=== PATIENT | female | born 1945 | race Caucasian/White ===

== ENCOUNTER 2024-12-11 08:04 | Emergency (ER) | payer MEDICARE, MEDICAID ==
[~2024-12-11] VITALS: Ht 170.2 cm; Wt 60.0 kg
[~2024-12-11 08:04] MED LIST: IBUP-2030 MT; LEVO100T9 MT
[2024-12-11 08:10] VITALS: O2SAT 97
[2024-12-11 09:33] LABS: BASOPHILS % 0.6 % (0.0-2.0); EOSINOPHILS % 4.2 % (0.0-5.0); HEMATOCRIT. 34.2 % (36.0-48.0); LYMPHOCYTES % 14.1 % (20.0-50.0); MEAN CORPUSCULAR HEMOGLOBIN 30.2 pg (28.0-32.0); MEAN CORPUSCULAR HGB CONC 32.1 g/dL (31.0-37.0); MEAN CORPUSCULAR VOLUME 94.1 fL (81.0-99.0); MEAN PLATELET VOLUME 8.5 fl (7.4-10.4); MONOCYTES % 6.4 % (2.0-8.0); NEUTROPHILS % 74.7 % (40.0-76.0); PLATELET 462 x1000/uL (130-400); RED BLOOD CELL COUNT 3.64 mill/uL (4.2-5.4); RED CELL DISTRIBUTION WIDTH 15.2 % (11.6-14.6); WHITE BLOOD COUNT 11.2 x1000/uL (4.5-11.0)
[2024-12-11 09:38] LABS: CHLORIDE 110 mEq/L (98-107)
[2024-12-11 09:39] LABS: CARBON DIOXIDE 27 mEq/L (21-32); POTASSIUM 4.1 mEq/L (3.5-5.1); SODIUM 143 mEq/L (136-145)
[2024-12-11 09:40] LABS: CALCIUM 9.3 mg/dL (8.7-10.4)
[2024-12-11 09:44] LABS: CREATININE 0.6 mg/dL (0.6-1.0); GLUCOSE 98 mg/dL (70-105)
[2024-12-11 09:45] LABS: UREA NITROGEN BLOOD 17 mg/dL (9-23)
[2024-12-11 09:46] LABS: ALANINE AMINOTRANSFERASE 11 IU/L (10-49); ALBUMIN 3.6 g/dL (3.2-4.8); ASPARTATE AMINOTRANSFERASE 25 IU/L (<34); PROTHROMBIN TIME 10.6 sec (9.6-11.0)
[2024-12-11 09:47] LABS: BILIRUBIN DIRECT 0.1 mg/dL (<=3.0); BILIRUBIN TOTAL 0.4 mg/dL (0.1-1.0); PROTEIN TOTAL 7.5 g/dL (6.0-8.3)
[2024-12-11 14:03] VITALS: BP 139/76; PULSE 72; RESP 16; TEMP 36.9; O2SAT 99
[2024-12-11] MEDS ORDERED: FAMO-135 MT (14:05)
[2024-12-11] MEDS ORDERED: TOPUD PO (14:05)
[2024-12-11] MEDS ORDERED: POLY119P2 MT (14:05)
[2024-12-11] MEDS ORDERED: IBUP-2028 MT (14:05)
== END 2024-12-11 14:37 | disposition home or self-care (01) ==
LOC: ER 08:04
DX: K80.70 Calculus of gallbladder and bile duct without cholecystitis without obstruction (principal); F17.200 Nicotine dependence, unspecified, uncomplicated; I10 Essential (primary) hypertension; F03.90 Unspecified dementia, unspecified severity, without behavioral disturbance, psychotic disturbance, mood disturbance, and anxiety; Z59.00 Homelessness unspecified; Z79.899 Other long term (current) drug therapy; Z86.39 Personal history of other endocrine, nutritional and metabolic disease
CPT/HCPCS: 36415; 74176; 76705; 76856; 80048; 80076; 85025; 99284; A4606

== ENCOUNTER 2024-12-25 16:14 | Emergency (ER) | payer MEDICARE, MEDICAID ==
[~2024-12-25] VITALS: Ht 167.6 cm; Wt 68.0 kg
[~2024-12-25 16:14] MED LIST changes: +FAMO-135 MT; +IBUP-2028 MT; +POLY119P2 MT; +TOPUD PO
[2024-12-25 16:18] VITALS: O2SAT 100
[2024-12-25 16:19] VITALS: BP 132/85; PULSE 72; RESP 16; TEMP 36.7; O2SAT 99
== END 2024-12-25 16:57 | disposition left against medical advice (07) ==
LOC: ER 16:14
DX: R10.9 Unspecified abdominal pain (principal); R07.9 Chest pain, unspecified; Z53.21 Procedure and treatment not carried out due to patient leaving prior to being seen by health care provider